=== PATIENT | male | born 1980 | race African-American/Black ===

== ENCOUNTER 2017-02-06 13:52 | Emergency (ER) | payer SELFPAY ==
[2017-02-06 14:01] VITALS: BP 142/79; PULSE 79; TEMP 98; BMI 27.1
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
== END 2017-02-06 14:42 | disposition home or self-care (01) ==
LOC: JERFT 13:52
DX: K59.09 Other constipation (principal)
CPT/HCPCS: 99281-25

== ENCOUNTER 2018-04-16 16:31 | Emergency (ER) | payer OTHER ==
--- NOTE | 2018-04-16 16:43 | PDOC ---
Rapid Medical Evaluation Chief Complaint: Abscess Boil Time Seen by Provider: 04/16/18 16:40 Medical Evaluation: Allergies Allergy/AdvReac Type Severity Reaction Status Date / Time No Known Allergies Allergy Verified 02/06/17 14:01 04/16/18 16:41 I have performed a brief in-person evaluation of this patient. The patient presents with a chief complaint of: abscess above pubis x 2 weeks ~ opened x 2 but still getting larger. + shaves and has had abcesses in past/ Pertinent physical exam findings: non toxic , temps I have ordered the following: nothing The patient will proceed to the ED for further evaluation.
[2018-04-16 16:44] VITALS: BP 126/75; PULSE 90; TEMP 98.2; BMI 25.7
--- NOTE | 2018-04-16 18:05 | PDOC ---
History of Present Illness - General Chief Complaint: Abscess Boil Stated Complaint: ABSCESS BOIL Time Seen by Provider: 04/16/18 16:40 Exam Limitations: Clinical Condition - History of Present Illness Initial Comments: 04/16/18 18:07 Patient with no significant past medication present with complain of abscess to pubic region which has been persistent for a month. Patient reported abscess started forming after he shaved his pubic region. Patient denies any other symptoms Timing/Duration: other (1 month) Past History - Past Medical History Allergies/Adverse Reactions: Allergies Allergy/AdvReac Type Severity Reaction Status Date / Time No Known Allergies Allergy Verified 04/16/18 16:44 Home Medications: Ambulatory Orders Cephalexin [Keflex] 500 mg PO BID 7 Days #14 capsule 04/16/18 Ibuprofen 800 mg PO Q8H PRN #20 tablet 04/16/18 Mupirocin Ointment [Bactroban 2% Ointment -] 1 applic TP TID #1 tube 04/16/18 COPD: No HTN: Yes - Suicide/Smoking/Psychosocial Hx Smoking History: Never smoked Number of Cigarettes Smoked Daily: 20 If you are a former smoker, when did you quit?: 2017 Information on smoking cessation initiated: No 'Breaking Loose' booklet given: 02/06/17 Hx Alcohol Use: No Drug/Substance Use Hx: Yes (marijuana) Substance Use Type: None Review of Systems - Review of Systems Able to Perform ROS?: Yes Is the patient limited Kiswahili proficient: No Constitutional: No: Chills, Fever HEENTM: Yes: Symptoms Reported Respiratory: Yes: Symptoms reported Cardiac (ROS): Yes: Symptoms Reported ABD/GI: Yes: Symptoms Reported, Nausea, Vomiting, Abdominal cramping : Yes: Burning, Dysuria, Discharge Integumentary: Yes: See HPI, Lumps (abscess to mons pubis) All Other Systems: Reviewed and Negative *Physical Exam - Vital Signs Last Vital Signs Temp Pulse Resp BP Pulse Ox 98.2 F 90 19 126/75 100 04/16/18 16:41 04/16/18 16:41 04/16/18 16:41 04/16/18 16:41 04/16/18 16:41 - Physical Exam General Appearance: Yes: Nourished, Appropriately Dressed. No: Apparent Distress HEENT: positive: Normal ENT Inspection Neck: positive: Supple Respiratory/Chest: positive: Lungs Clear, Respiratory Distress Cardiovascular: positive: Regular Rhythm, Regular Rate Male Genitalia: positive: normal genitalia Extremity: positive: Normal Inspection Integumentary: positive: Other (3cm hard induration with small area of ingrown hair to mons pubis) Neurologic: positive: Fully Oriented, Alert Medical Decision Making - Medical Decision Making 04/16/18 18:05 Patient with no significant past medication present with complain of abscess to pubic region which has been persistent for a month. Patient reported abscess started forming after he shaved his pubic region. Patient denies any other symptoms hard induration with mons pubis over area of folliculitis. I&D attempted but only small amount of drainage obtained. patient advised to do heat therapy to help soften area and discharge on Keflex with dermatology follow -up 04/16/18 18:07 *DC/Admit/Observation/Transfer Diagnosis at time of Disposition: Suprapubic abscess - Discharge Dispostion Disposition: HOME Condition at time of disposition: Stable Decision to Admit order: No - Prescriptions Prescriptions: Cephalexin [Keflex] 500 mg PO BID 7 Days #14 capsule Ibuprofen 800 mg PO Q8H PRN #20 tablet PRN Reason: pain Mupirocin Ointment [Bactroban 2% Ointment -] 1 applic TP TID #1 tube - Referrals Referrals: Alejandro Gilmore MD [Non Staff, Medical] - - Patient Instructions Printed Discharge Instructions: DI for Incision and Drainage of a Skin Abscess Additional Instructions: Take medication as prescribed. Apply and prescribed topical medication to wound twice a day until healed. Follow-up referred to dermatology for reassessment in 4-5 days. Apply heat to abscess area 3-4 times a day for 5-10 minutes until healed. - Post Discharge Activity
== END 2018-04-16 18:13 | disposition home or self-care (01) ==
LOC: JERFT 16:31
PROC: 0J9C0ZZ Drainage of Pelvic Region Subcutaneous Tissue and Fascia, Open Approach (ICD-10-PCS; principal; 2018-04-16)
DX: L02.214 Cutaneous abscess of groin (principal); I10 Essential (primary) hypertension
CPT/HCPCS: 99281-25

== ENCOUNTER 2018-05-19 20:44 | Observation (INO) | payer OTHER ==
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
[2018-05-19] MEDS ORDERED: morphine CARPU-JECT 2 MG/1 ML DISP.SYRIN IVPUSH ONE (22:03)
[2018-05-19] MEDS ORDERED: MORPHINE SULFATE 2 MG/ML VIAL ONE (22:29)
[2018-05-19] MEDS ORDERED: ONDANSETRON 4 MG/2 ML VIAL ONE (22:29)
[2018-05-19] MEDS ORDERED: ONDANSETRON 4 MG/2 ML VIAL IVPUSH ONE (22:39)
[2018-05-19] MEDS ORDERED: SODIUM CHLORIDE 1,000 ML IV SCH (22:45)
[2018-05-19 22:54] LABS: BASO % 0.4 % (0-2.0); EOS % 0.1 % (0-4.5); HEMATOCRIT 37.6 % (35.4-49); HEMOGLOBIN 13.1 GM/dL (11.7-16.9); LYMPH % 4.9 % (8-40); MCH 32.6 pg (25.7-33.7); MCHC 34.7 g/dl (32.0-35.9); MONO % 4.4 % (3.8-10.2); NEUT % 90.2 % (42.8-82.8); PLATELET COUNT 275 K/MM3 (134-434); RBC 4.01 M/mm3 (4.00-5.60); RDW 14.5 % (11.9-15.9); WHITE BLOOD COUNT 13.4 K/mm3 (4.0-10.0)
[2018-05-19 23:01] LABS: INR 1.04 (0.83-1.09); PROTHROMBIN TIME (PATIENT) 12.3 SEC (9.7-13.0)
[2018-05-19 23:03] LABS: ACTIVATED PTT 28.9 SECONDS (25.2-36.5)
[2018-05-19 23:11] LABS: ALBUMIN 4.1 g/dl (3.4-5.0); ALK PHOS 96 U/L (45-117); ANION GAP 7 MMOL/L (8-16); BILIRUBIN,TOTAL 0.7 mg/dL (0.2-1); BLOOD UREA NITROGEN 16 mg/dL (7-18); CALCIUM 9.2 mg/dL (8.5-10.1); CHLORIDE 105 mmol/L (98-107); CO2 28 mmol/L (21-32); CREATININE 1.5 mg/dL (0.55-1.3); GLUCOSE,RANDOM 95 mg/dL (74-106); POTASSIUM 3.7 mmol/L (3.5-5.1); SGOT/AST 16 U/L (15-37); SGPT/ALT 18 U/L (13-61); SODIUM 140 mmol/L (136-145); TOT PROT 7.7 g/dl (6.4-8.2)
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
[2018-05-19] MEDS ORDERED: ONDANSETRON 4 MG/2 ML VIAL IVPUSH PRN (23:49)
[2018-05-19] MEDS ORDERED: MORPHINE SULFATE 2 MG/ML VIAL IVPUSH PRN (23:49)
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
[2018-05-20 00:09] LABS: METHADONE, UR NEGATIVE ng/ml (CUTOFF=300); PHENCYCLIDINE,URINE NEGATIVE ng/ml (CUTOFF=25); URINE AMPHETAMINES NEGATIVE ng/ml (CUTOFF=500); URINE BARBITURATES NEGATIVE ng/ml (CUTOFF=200); URINE BENZODIAZEPINES NEGATIVE ng/ml (CUTOFF=200)
[2018-05-20 00:11] LABS: COCAINE, UR POSITIVE ng/ml (CUTOFF=300); OPIATES, URI POSITIVE ng/ml (CUTOFF=300)
--- NOTE | 2018-05-20 01:03 | PN ---
Progress Note (short form) - Note Progress Note: GI Procedure Note: Please see flex sig note. Foreign body extracted. Will observe overnight Problem List - Problems (1) Foreign body anus/rectum Code(s): T18.5XXA - FOREIGN BODY IN ANUS AND RECTUM, INITIAL ENCOUNTER Qualifiers: Encounter type: initial encounter Qualified Code(s): T18.5XXA - Foreign body in anus and rectum, initial encounter (2) Cocaine abuse Code(s): F14.10 - COCAINE ABUSE, UNCOMPLICATED
[2018-05-20] MEDS ORDERED: ACETAMINOPHEN 325 MG TABLET (FP) PO ONE (01:06)
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
[2018-05-20 03:19] VITALS: BMI 25.3
[2018-05-20 06:38] LABS: HEMATOCRIT 36.7 % (35.4-49); MCH 30.9 pg (25.7-33.7); MCHC 32.7 g/dl (32.0-35.9); MEAN CELL VOLUME 94.5 fl (80-96); MEAN PLT VOLUME 8.5 fl (7.5-11.1); PLATELET COUNT 249 K/MM3 (134-434); RBC 3.89 M/mm3 (4.00-5.60); RDW 14.4 % (11.9-15.9); WHITE BLOOD COUNT 10.7 K/mm3 (4.0-10.0)
[2018-05-20 07:00] LABS: ANION GAP 8 MMOL/L (8-16); BLOOD UREA NITROGEN 13 mg/dL (7-18); CALCIUM 8.6 mg/dL (8.5-10.1); CHLORIDE 106 mmol/L (98-107); CO2 28 mmol/L (21-32); CREATININE 1.2 mg/dL (0.55-1.3); GLUCOSE,RANDOM 78 mg/dL (74-106); PHOSPHOROUS 4.3 mg/dL (2.5-4.9); POTASSIUM 3.6 mmol/L (3.5-5.1); SODIUM 142 mmol/L (136-145)
[2018-05-20 08:22] LABS: BASO % 0.6 % (0-2.0); EOS % 1.7 % (0-4.5); HEMATOCRIT 34.9 % (35.4-49); HEMOGLOBIN 12.2 GM/dL (11.7-16.9); LYMPH % 22.3 % (8-40); MCH 32.4 pg (25.7-33.7); MCHC 34.9 g/dl (32.0-35.9); MEAN CELL VOLUME 93.1 fl (80-96); MEAN PLT VOLUME 8.7 fl (7.5-11.1); MONO % 6.6 % (3.8-10.2); NEUT % 68.8 % (42.8-82.8); PLATELET COUNT 252 K/MM3 (134-434); RBC 3.75 M/mm3 (4.00-5.60); RDW 14.5 % (11.9-15.9); WHITE BLOOD COUNT 10.1 K/mm3 (4.0-10.0)
--- NOTE | 2018-05-20 09:51 | EKG ---
Test Reason : Blood Pressure : / mmHG Vent. Rate : 101 BPM Atrial Rate : 101 BPM P-R Int : 150 ms QRS Dur : 082 ms QT Int : 356 ms P-R-T Axes : 061 038 035 degrees QTc Int : 461 ms SINUS TACHYCARDIA OTHERWISE NORMAL ECG NO PREVIOUS ECGS AVAILABLE Confirmed by ROSSY MEDRANO, KIERSTEN ([id number]) on 05/20/2018 9:50:56 AM Referred By: Confirmed By:KIERSTEN BLAIR MD
--- NOTE | 2018-05-20 11:39 | PN ---
GI Progress Note Subjective: GI NOte: Tolerated breakfast. No pain. Wants lunch. No rectal bleeding. CXR and FUA reveal no perforation - Objective Vital Signs: Vital Signs Temperature 98.5 F 05/20/18 11:00 Pulse Rate 80 05/20/18 11:00 Respiratory Rate 16 05/20/18 11:00 Blood Pressure 127/54 L 05/20/18 11:00 O2 Sat by Pulse Oximetry (%) 99 05/20/18 08:00 Laboratory Tests 05/20/18 05/20/18 08:00 08:00 WBC 10.1 H C-Reactive Protein 0.7 H Constitutional: Calm ...Auscultate: Yes: Normoactive Bowel Sounds ...Palpate: Yes: Soft, Other (nontender) Labs: CBC, BMP 05/20/18 08:00 05/20/18 06:15 INR, PTT INR 1.04 (0.83-1.09) 05/19/18 21:57 Assessment/Plan Day 1 s/p extraction of foreign body from rectosigmoid colon No GI objections to discharge Advised to refrain from further cocaine abuse and foreign body insertions Problem List - Problems (1) Foreign body anus/rectum Code(s): T18.5XXA - FOREIGN BODY IN ANUS AND RECTUM, INITIAL ENCOUNTER Qualifiers: Encounter type: initial encounter Qualified Code(s): T18.5XXA - Foreign body in anus and rectum, initial encounter (2) Cocaine abuse Code(s): F14.10 - COCAINE ABUSE, UNCOMPLICATED
--- NOTE | 2018-05-20 13:44 | DS ---
Physical Exam: SUBJECTIVE: Patient reports he has no pain this morning. he has been able to pass gas and tolerate food. Patient has no complaints. OBJECTIVE: Vital Signs Temperature 98.4 F 05/20/18 15:00 Pulse Rate 79 05/20/18 15:00 Respiratory Rate 16 05/20/18 15:00 Blood Pressure 107/60 05/20/18 15:00 O2 Sat by Pulse Oximetry (%) 99 05/20/18 08:00 PHYSICAL EXAM GENERAL: A&O, no acute distress EYES: PERRL, no scleral icterus NECK: supple without lymphadenopathy LUNGS: CTA b/l, no crackles or wheezes HEART: Regular rate and rhythm, normal S1 and S2 without murmur ABDOMEN: Soft, nontender to palpation, normoactive bowel sounds EXTREMITIES: 2+ pulses, warm, well-perfused. No peripheral edema. PSYCHIATRIC: Cooperative. Good eye contact. Appropriate mood and affect. SKIN: Warm, dry, no rashes or lesions noted LABS CBC, BMP 05/20/18 08:00 05/20/18 06:15 HOSPITAL COURSE: Date of Admission:05/19/18 Patient was admitted to the hospital because he had a foreign object stuck in his rectum. Patient was evaluated by [facility] Dr. Hinton, who preformed a sigmoidoscopy and removed the object. Patient had cxr and abd xr after and did not show any perforation. Patients vitals stable and discharged. abd CT: foreign body consistent with a plastic, air-filled tube, within distal sigmoid colon 05/20 CXR: no acute pathology 05/20 Abd XR: no acute pathology Date of Discharge: 05/20/18 Minutes to complete discharge: 40 Discharge Summary Reason For Visit: COCAINE ABUSE FOREIGN BODY IN ANUS AND RECTUM Current Active Problems Cocaine abuse (Acute) Condition: Good - Instructions Diet, Activity, Other Instructions: you were here fro removal of a foreign object from rectum . You can follow up with the [facility], Dr. Hinton. You should follow up with your primary care physician in one week.we have referred you to our resident clinic Please return to the Emergency Department if you have any chest pain, nausea, vomiting, or shortness of breath. [place]: [facility] [place] [facility] [Provider Group] Montserrat Hinton MD [Staff Physician] - Disposition: HOME - Home Medications Comprehensive Discharge Medication List: Ambulatory Orders NK [No Known Home Medication] 05/19/18 This patient is new to me today: No Emergency Visit: No Critical Care patient: No - Discharge Referral Referred to [facility] No
--- NOTE | 2018-05-20 13:47 | PN ---
Teaching Attending Note Name of Resident: Kailey Alvarez ATTENDING PHYSICIAN STATEMENT I saw and evaluated the patient. I reviewed the resident's note and discussed the case with the resident. I agree with the resident's findings and plan as documented. SUBJECTIVE: no f ever or chills. little discomfort in LLLQ. no cp or SOB . OBJECTIVE: NAD Cv : RRR Lungs: CTAB Ext : no edema Abd: soft, ND, NT, NL BS . ASSESSMENT AND PLAN: 37 y/o lady with no significant PMH who presented with a oreign body in rectum . now s/p sigmoidoscopy with removal of object. KUB and cxray with no free air in abd exam is benign dc home referred to resident clinic after dc
[2018-05-20 16:03] VITALS: BP 107/60; PULSE 79; TEMP 98.4
--- NOTE | 2018-05-21 17:26 | PATH ---
Surgical Pathology Report Patient Name: VALENTINO BARNETT Med. Rec. #: [id number] /Age/Gender: 1980 (Age: 37) / M Account: [id number] Location: [address] [place] [address]/[facility] Taken: 05/20/2018 Received: 05/20/2018 Reported: 05/21/2018 Physicians: Montserrat Hinton M.D. PHYSICIAN EMERGENCY DEPT Specimen(s) Received FOREIGN BODY Clinical History Foreign body Final Diagnosis FOREIGN BODY, FLEXIBLE SIGMOIDOSCOPY, FOREIGN BODY EXTRACTION: FOREIGN BODY MATERIAL. MACROSCOPIC DIAGNOSIS. Electronically Signed Kailey Cheema M.D. Gross Description Received fresh labeled "foreign body," is a 25.0 x 2.8 x 2.0 cm blue, plastic foreign body. No soft tissue is present. No sections are submitted, gross only. /05/20/201805/20/2018
== END 2018-05-20 15:39 | disposition home or self-care (01) ==
LOC: JER 20:44 → JERBED 23:52 → J6S 05-20 01:34
PROVIDERS: ADMIT Internal Medicine; ATTEND Internal Medicine
PROC: 0DCN8ZZ Extirpation of Matter from Sigmoid Colon, Via Natural or Artificial Opening Endoscopic (ICD-10-PCS; principal; 2018-05-19)
DX: T18.5XXA Foreign body in anus and rectum, initial encounter (principal); N17.9 Acute kidney failure, unspecified; D72.829 Elevated white blood cell count, unspecified; F14.10 Cocaine abuse, uncomplicated; X58.XXXA Exposure to other specified factors, initial encounter; Y93.89 Activity, other specified; Y92.89 Other specified places as the place of occurrence of the external cause; Y99.8 Other external cause status
CPT/HCPCS: 36415; 71046-TC-FY; 74018-TC-FY; 74021-TC-FY; 74176-TC; 80048; 80053; 80307; 83735; 84100; 85025; 85027; 85610; 85730; 86140; 86850; 86900; 86901; 87040; 88300-TC; 93005; 93010; 94760; 99284-25; G0378; J7030